=== PATIENT | male | born 1970 | race Caucasian/White ===

== ENCOUNTER 2016-06-10 22:12 | Inpatient (IN) | payer OTHER ==
--- NOTE | ~2016-06-10 | HP ---
Unit #: [id number] #: [id number] Patient: STEPHANIE MENG [id number] [address] [place], [place] [address] [id number] MR#: [id number] NAME: STEPHANIE MENG ROOM: 316 Age: 45 Sex: M Admission Date: 06/11/2016 : 1970 Attending Physician: Juany Nielson M.D. Primary Care Physician: Saravanan Medina M.D. HISTORY AND PHYSICAL CHIEF COMPLAINT Left groin pain. HISTORY OF PRESENT ILLNESS [age] year old, with history of diabetes admitted because of left groin pain. He did have multiple admissions in the past for groin and axilla cellulitis and seen by surgeons, treated medically at that time. Currently, he is complaining of left groin pain and redness since two days prior to the admission. Pain around 4/10 currently, has fever today. No nausea and no vomiting, chest pain, shortness of breath, no abdominal pain, no leg swelling, complaining of headaches since one day. No dizziness. No syncope. PAST MEDICAL HISTORY 1. History of diabetes mellitus, type 2. 2. History of MRSA infection in his groin and axilla. 3. 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 4. Also the patient had herniorrhaphy repair in 2013. ALLERGIES No known drug allergies. CURRENT HOME MEDICATIONS 1. Metformin 2. Rincon 3. Doxycycline 4. Augmentin This list isn't complete, I will get complete list from his pharmacy. SOCIAL HISTORY He smokes one pack of cigarettes per day, no alcohol, and no drugs. FAMILY HISTORY Negative for coronary artery disease. REVIEW OF SYSTEMS Complaining of headache, no visual changes, no weakness, numbness, or tingling, no skin rash. Twelve point system which is otherwise negative other than in history of present illness. PHYSICAL EXAMINATION VITAL SIGNS: Temperature 100.0, pulse 98, respirations 18, and blood Unit #: [id number] #: [id number] Patient: STEPHANIE MENG pressure 110/70. GENERAL EXAMINATION: 45 year old, lying in bed, not in any acute distress. Able to provide history. Alert and oriented x3. HEENT: Pupils equal, reactive to light and accommodation, dry mucous membranes present. NECK: Supple. HEART: S1 and S2 heard. Regular rhythm. No murmurs. LUNGS: Clear to auscultation, no crackles. ABDOMEN: Soft, nontender, bowel sounds are present. Left groin shows erythema and swelling, no obvious abscess. Right groin is normal. EXTREMITIES: No pedal edema. SKIN: No rash. NEUROLOGIC: No focal neurological deficits. DIAGNOSTIC STUDIES LABORATORY: Glucose 231, sodium 135, potassium 3.9, creatinine 0.7, WBC 13.5, hemoglobin 13.4, platelets 220, lactic acid 2.5. IMAGING: CAT scan shows findings compatible with focal cellulitis in the left upper thigh near scrotum. ASSESSMENT/PLAN 1. Sepsis from left groin cellulitis. The patient will continue with IV antibiotics. 2. Left groin cellulitis with history of multiple infections in the past. I will ask [facility] to see. The patient is started on vancomycin and Zosyn, and will do blood cultures. 3. Diabetes mellitus, type 2, uncontrolled. Continue with sliding scale and I am going to add glipizide. 4. Headache, no history of migraines. Continue the Lortab p.r.n. 5. History of MRSA. I am going to do contact isolation. Dictated by Noam Adan/abimbola TD: 06/11/2016 12:50 JOB #: [id number] HISTORY AND PHYSICAL Page 1 of 1 X Juany Nielson MD X HISTORY AND PHYSICAL
--- NOTE | ~2016-06-10 | CO ---
Unit #: [id number] #: [id number] Patient: STEPHANIE MENG [id number] [address] [place], [place] [address] [id number] MR#: [id number] NAME: STEPHANIE MENG ROOM: 242 Age: 45 Sex: M Admission Date: 06/11/2016 : 1970 Attending Physician: José Berger M.D. Primary Care Physician: Saravanan Medina M.D. Consultation Date: 06/12/2016 CONSULTATION REPORT HISTORY OF PRESENT ILLNESS Mr. Davis is a 45-year-old white male with diabetes who had 3 to 4 day history of left groin cellulitis, bacterial or possible fungal infection within the area of induration in the groin with small open areas as noted. The patient also has very poor hygiene with an odor noted in the area in question. CT scan was done on this area, which did not show any abscess, but did show the cellulitis. PAST MEDICAL HISTORY See previous notes. The patient does have a home incarceration bracelet on his left ankle. ALLERGIES He has no drug allergies. MEDICATIONS He was on metformin at home only. He presently is on vancomycin and Zosyn. PHYSICAL EXAMINATION GENERAL: Cooperative and alert white male. HEENT: Clear. No jaundice. Pupils are equal and reactive to light. CHEST: Clear. CARDIAC: Rhythm is regular. ABDOMEN: Soft and nontender. The area in question is in the left groin. There were a couple of isolated areas of induration with some areas of slough over them. There was also extends about 6 to 8 cm area of cellulitis. It is difficult to tell whether this is a true bacterial or fungal cellulitis. We will treat for both. The patient may or may not be needed incision and debridement of this. We will follow him fairly closely. See orders. Dictated by... Aryan Velázquez M.D. MICHAEL/eugenio TD: 06/12/2016 06:26 JOB #: [id number] Unit #: [id number] #: [id number] Patient: STEPHANIE MENG CONSULTATION REPORT Page 1 of 1 X Aryan Velázquez MD CONSULTATION REPORT
--- NOTE | ~2016-06-10 | CT2 ---
[facility] A Service of [facility] & [facility] RADIOLOGY TEXT RESULTS PATIENT: STEPHANIE MENG LOCATION: A 242-01 : [birth year] UNIT #: [id number] AGE: [address]: Juany Nielson MD SEX: M ORDER DR: [id number] [facility] [address] [facility]. [place], [place] [address] [id number] I MR#: [id number] Acc #: [id number] NAME: STEPHANIE MENG : 1970 SEX: M STUDY DATE/TIME: 06/10/2016 23:48 UNIT: C3A PCU ROOM: [facility] STUDY DESCRIPTION: CT Abd and Pelv W Cont Attending Physician: Juany Nielson M.D. Ordering Physician: Jaswinder Castro Aprn Primary Care Physician: Saravanan Medina M.D. MEDICAL IMAGING REPORT This report is preliminary unless electronic signature is present EXAM CT abdomen and pelvis with contrast 06/10/2016 HISTORY 45-year-old male in the ED with clinical findings suspicious for left inguinal region abscess near scrotum, cellulitis. Current symptoms for about 2 days. Skin drainage. Past history of MRSA infection. Past history of similar groin inflammation, November 2015. TECHNIQUE CT examination of the abdomen and pelvis was performed with IV contrast. This CT exam was performed with one or more of the following radiation dose reduction techniques: automatic control, adjustment of mA and/or kV according to patient size, and iterative reconstruction. COMPARISON CT pelvis, 11/24/2015 FINDINGS ABDOMEN FINDINGS: Liver, pancreas, spleen and kidneys are normal in size and appearance. Contracted gallbladder. No bile duct dilatation. Small bowel and colon are normal in caliber and appearance without GI contrast. The appendix is normal. Normal-caliber abdominal aorta. PELVIS FINDINGS: Skin thickening and underlying subcutaneous soft tissue stranding in the left upper anteromedial thigh near the scrotum. No abscess or other undrained fluid collection is visible. There is no evidence of scrotal cellulitis. Scrotal hydroceles are present, best demonstrated on previous scrotal ultrasound examination 11/23/2015. Within the pelvis, the exam is negative. Bladder, prostate and rectum are within normal limits. [facility] A Service of [facility] & [facility] RADIOLOGY TEXT RESULTS PATIENT: STEPHANIE MENG LOCATION: C2A 242-01 : [birth year] UNIT #: [id number] AGE: [address]: Juany Nielson MD SEX: M ORDER DR: IMPRESSION 1. Findings compatible with focal cellulitis in the anteromedial left upper thigh near the scrotum as described. No abscess or other undrained fluid collection is identified. No evidence of scrotal cellulitis. 2. Soft tissues within the pelvis are unremarkable. 3. Remainder of the exam is negative. Dictated by... Vin Monsalve M.D. THIS IS AN ELECTRONICALLY VERIFIED REPORT Vin Monsalve M.D. at 06/11/2016 9:51 PM TYLER/dayami TD: 06/11/2016 00:49 JOB #: [id number] MEDICAL IMAGING REPORT Page 1 of 1 COPY
[~2016-06-10 22:12] MED LIST: ACTOS15 MG PO; AUGMENTIN875 MG PO; DOXYCYCLINE HY100 M3 PO; GLUCOPHAGE XR500 MG PO; KEFLEX500 MG PO; METFORMIN HCL500 M1 PO; METFORMIN PO; NORCO 10/3251 TAB PO; NORCO1 TAB 10/3 PO
[2016-06-10 22:48] LABS: BASOPHIL# 0.1 X10e3 (0-0.3); BASOPHIL% 0.6 % (0-2.5); EOSINOPHIL# 0.1 X10e3 (0-0.7); EOSINOPHIL% 0.7 % (0.0-7.0); HEMATOCRIT 43.6 % (38.0-50.0); HEMOGLOBIN 14.7 gm/dL (13.0-16.0); LYMPHOCYTE# 1.1 X10e3 (1.0-3.5); LYMPHOCYTE% 9.5 % (17.0-45.0); MEAN CELL VOLUME 85.6 FL (83-96); MEAN CORPUSCULAR HEMOGLOBIN 28.9 PG (28-34); MEAN CORPUSCULAR HGB CONC 33.8 g/dL (30-36); MEAN PLATELET VOLUME 8.5 FL (6.5-11.5); MONOCYTE# 1.4 X10e3 (0-1.0); MONOCYTE% 11.4 % (3.0-12.0); NEUTROPHIL# 9.2 X10e3 (1.5-7.1); NEUTROPHIL% 77.8 % (40-75); PLATELET COUNT 253 X10e3 (140-420); RED BLOOD COUNT 5.09 X10e (3.90-5.60); RED CELL DISTRIBUTION WIDTH 14.6 % (11.0-15.5); WHITE BLOOD COUNT 11.9 X10e3 (4.0-10.5)
[2016-06-10 22:49] LABS: DIFF IND NO
[2016-06-10 23:08] LABS: ALBUMIN SERUM 3.7 g/dL (3.5-5.0); BILIRUBIN, DIRECT 0.1 mg/dL (0.0-0.2); BILIRUBIN,INDIRECT 0.5 mg/dL (0.0-0.9); BILIRUBIN,TOTAL 0.6 mg/dL (0.2-2.0); BUN/CREATININE RATIO 13.75; CALCIUM SERUM 9.1 mg/dL (8.4-10.2); CREATININE SERUM 0.8 mg/dL (0.6-1.4); GLOM FILT RATE Estimated 108.7 mL/min (>60); POTASSIUM 3.7 mmol/L (3.5-5.1); PROTEIN TOTAL SERUM 6.9 g/dL (6.0-8.3)
[2016-06-11 02:43] LABS: URINE APPEARANCE CLEAR; URINE BILIRUBIN NEG (NEG); URINE BLOOD NEG (NEG); URINE COLOR YELLOW; URINE GLUCOSE >1000 MG/DL (NEG); URINE KETONE NEG (NEG); URINE LEUKOCYTE ESTERASE NEG (NEG); URINE NITRATE NEG (NEG); URINE PROTEIN NEG (NEG)
[2016-06-11 02:46] LABS: CULTURE INDICATED? NO
[2016-06-11 04:15] LABS: BASOPHIL# 0.1 X10e3 (0-0.3); BASOPHIL% 0.5 % (0-2.5); EOSINOPHIL# 0.1 X10e3 (0-0.7); EOSINOPHIL% 1.1 % (0.0-7.0); HEMATOCRIT 39.1 % (38.0-50.0); HEMOGLOBIN 13.4 gm/dL (13.0-16.0); LYMPHOCYTE# 0.8 X10e3 (1.0-3.5); MEAN CELL VOLUME 85.8 FL (83-96); MEAN CORPUSCULAR HEMOGLOBIN 29.4 PG (28-34); MEAN CORPUSCULAR HGB CONC 34.3 g/dL (30-36); MONOCYTE# 1.7 X10e3 (0-1.0); NEUTROPHIL# 10.7 X10e3 (1.5-7.1); NEUTROPHIL% 79.4 % (40-75); PLATELET COUNT 220 X10e3 (140-420); RED BLOOD COUNT 4.56 X10e (3.90-5.60); RED CELL DISTRIBUTION WIDTH 14.6 % (11.0-15.5); WHITE BLOOD COUNT 13.5 X10e3 (4.0-10.5)
[2016-06-11 04:16] LABS: DIFF IND NO
[2016-06-11 04:33] LABS: BUN/CREATININE RATIO 15.71; CALCIUM SERUM 8.4 mg/dL (8.4-10.2); CREATININE SERUM 0.7 mg/dL (0.6-1.4); GLOM FILT RATE Estimated 114.8 mL/min (>60); POTASSIUM 3.9 mmol/L (3.5-5.1)
[2016-06-12 06:01] LABS: HEMATOCRIT 40.3 % (38.0-50.0); HEMOGLOBIN 13.6 gm/dL (13.0-16.0); MEAN CELL VOLUME 85.2 FL (83-96); MEAN CORPUSCULAR HEMOGLOBIN 28.6 PG (28-34); MEAN CORPUSCULAR HGB CONC 33.6 g/dL (30-36); MEAN PLATELET VOLUME 8.5 FL (6.5-11.5); RED BLOOD COUNT 4.73 X10e (3.90-5.60); RED CELL DISTRIBUTION WIDTH 14.3 % (11.0-15.5); WHITE BLOOD COUNT 13.3 X10e3 (4.0-10.5)
[2016-06-12 06:43] LABS: ALBUMIN SERUM 3.1 g/dL (3.5-5.0); BILIRUBIN,TOTAL 0.4 mg/dL (0.2-2.0); BUN/CREATININE RATIO 21.66; CALCIUM SERUM 8.8 mg/dL (8.4-10.2); CREATININE SERUM 0.6 mg/dL (0.6-1.4); GLOM FILT RATE Estimated 122.3 mL/min (>60); POTASSIUM 3.8 mmol/L (3.5-5.1); PROTEIN TOTAL SERUM 6.6 g/dL (6.0-8.3)
== END 2016-06-12 09:40 | disposition left against medical advice (07) | DRG 872 ==
LOC: CED 22:12 → CEDOF 06-11 01:25 → C3A PCU 06-11 08:38 → C2A 06-11 16:10
PROVIDERS: Internal Medicine; Nurse Practitioner Family
DX: A41.9 Sepsis, unspecified organism (principal); E11.65 Type 2 diabetes mellitus with hyperglycemia; L03.314 Cellulitis of groin; F17.210 Nicotine dependence, cigarettes, uncomplicated; Z86.14 Personal history of Methicillin resistant Staphylococcus aureus infection; R51 Headache; N49.2 Inflammatory disorders of scrotum
CPT/HCPCS: 36415; 74177; 80048; 80053; 80076; 81003; 82947; 83605; 85025; 85027; 87040; 96365; 96367; 96375; 99285; J1815; J2270; J2405; J2543; J3370; Q9967

== ENCOUNTER 2016-10-08 19:33 | Emergency (ER) | payer OTHER ==
[~2016-10-08] VITALS: Ht 182.9 cm; Wt 93.0 kg
== END 2016-10-08 21:59 | disposition left against medical advice (07) ==
LOC: CED 19:33
DX: L03.116 Cellulitis of left lower limb (principal); L03.115 Cellulitis of right lower limb; E11.65 Type 2 diabetes mellitus with hyperglycemia; F17.210 Nicotine dependence, cigarettes, uncomplicated
CPT/HCPCS: 82947; 99283